=== PATIENT | male | born 1980 | race Caucasian/White ===

== ENCOUNTER 2021-01-14 10:44 | Emergency (ER) | payer BC ==
[~2021-01-14] VITALS: Ht 185.4 cm; Wt 113.4 kg
[2021-01-14] MEDS ORDERED: PREDNISONE50 MG PO (11:21)
[2021-01-14] MEDS ORDERED: EPIPEN 2-P0.3 MG/0.3 IM (11:21)
[2021-01-14 13:09] VITALS: BP 125/72
== END 2021-01-14 13:10 | disposition home or self-care (01) ==
LOC: M.ERS 10:44
DX: T63.441A Toxic effect of venom of bees, accidental (unintentional), initial encounter (principal); X58.XXXA Exposure to other specified factors, initial encounter